=== PATIENT | female | born 1995 | race Caucasian/White ===

== ENCOUNTER 2016-11-07 16:49 | Emergency (ER) | payer OTHER ==
[~2016-11-07] VITALS: Ht 177.8 cm; Wt 97.7 kg
[2016-11-07] MEDS ORDERED: SOD CHLORIDE 0.9% 1,000 ML IV STA (16:54)
--- NOTE | 2016-11-07 16:58 | ERD ---
ER Documentation Chief Complaint Date/Time DATE: 11/07/16 TIME: 16:56 Chief Complaint HPI This is a 21-year-old female with a known history of bipolar, borderline personality disorder and PTSD who presents to the emergency department brought in by EMS after her roommate stated she had consumed a significant amount of alcohol which was vodka and took 4 tablets of clonazepam 1 mg just prior to arrival. The patient indicated she took this and she wanted to get high and had no suicidal thoughts or homicidal thoughts. The patient moved from [place] 6 days prior to arrival and states she just wanted to alliance party. She denies any auditory tactile or visual hallucinations. EMS stated there were no signs of trauma. The patient also has a bottle of gabapentin but she stated she did not take any of those prior to arrival. She denies a headache. She denies any nausea. She states she is not currently sexually active and denies any frequency urgency or dysuria. ROS All systems reviewed and are negative except as per history of present illness. Allergies Allergies: Coded Allergies: No Known Allergy (Unverified , 11/07/16) Physical Exam Vitals Vital Signs Date Time Temp Pulse Resp B/P Pulse Ox O2 Delivery O2 Flow Rate FiO2 11/07/16 20:41 88 20 123/70 96 Room Air 11/07/16 17:29 98.3 93 17 119/55 96 Physical Exam Constitutional:Well-developed. Patient disheveled. Smelled of alcohol. HEENT:Normocephalic. Atraumatic.Pupils were 3 mm equal round reactive to light. Moist mucous membranes.No tonsillar exudates. Neck: No nuchal rigidity. No lymphadenopathy. No posterior cervical spine tenderness or step-offs. Respiratory: Not using accessory muscles of respiration.Lungs were clear to auscultation bilaterally. No rhonchi. No rales. No wheezing. Cardiovascular: Regular rate regular rhythm.No murmurs. No rubs were appreciated.S1, S2 normal. Distal pulses are palpable 2+ bilaterally. GI: Abdomen was soft. Nontender. Non Distended. No pulsatile abdominal masses or bruits. No rebound. No guarding. Bowel sounds were present and normal. Muscle skeletal: Full range of motion of both the upper and lower extremities bilaterally.Normal muscle tone.No assymetrical calf tenderness or swelling. Skin: No petechia, no purpura. No lesions on the palms or the soles of the feet. No maculopapular rash. NEURO: Patient was alert, awake, orientated x3.No facial droop. Gait was ataxic. Patient smelled of alcohol with slurred speech speech. No focal neurological deficits. Result Diagram: 11/07/16 1740 11/07/16 1740 Results 24 hrs Laboratory Tests Test 11/07/16 17:40 White Blood Count 10.510^3/ul Red Blood Count 4.9410^6/ul Hemoglobin 14.8g/dl Hematocrit 45.4% Mean Corpuscular Volume 91.9fl Mean Corpuscular Hemoglobin 30.0pg Mean Corpuscular Hemoglobin Concent 32.6g/dl Red Cell Distribution Width 13.4% Platelet Count 36172^3/UL Mean Platelet Volume 9.3fl Neutrophils % 53.6% Lymphocytes % 38.8% Monocytes % 6.3% Eosinophils % 0.3% Basophils % 0.5% Nucleated Red Blood Cells % 0.0/100WBC Neutrophils # 5.610^3/ul Lymphocytes # 4.110^3/ul Monocytes # 0.710^3/ul Eosinophils # 0.010^3/ul Basophils # 0.110^3/ul Nucleated Red Blood Cells # 0.010^3/ul Prothrombin Time 13.7Sec Prothrombin Time Ratio 1.1 INR International Normalized Ratio 1.05 Activated Partial Thromboplast Time 26.8Sec Urine Color YELLOW Urine Clarity CLEAR Urine pH 5.0 Urine Specific [place] 1.016 Urine Ketones NEGATIVEmg/dL Urine Nitrite NEGATIVEmg/dL Urine Bilirubin NEGATIVEmg/dL Urine Urobilinogen NEGATIVEmg/dL Urine Leukocyte Esterase NEGATIVELeu/ul Urine Hemoglobin NEGATIVEmg/dL Urine Glucose NEGATIVEmg/dL Urine Total Protein NEGATIVEmg/dl Sodium Level 149mmol/L Potassium Level 4.1mmol/L Chloride Level 110mmol/L Carbon Dioxide Level 20mmol/L Anion Gap 23 Blood Urea Nitrogen 13mg/dl Creatinine 1.06mg/dl Glucose Level 88mg/dl Calcium Level 9.6mg/dl Total Bilirubin 0.7mg/dl Direct Bilirubin 0.00mg/dl Indirect Bilirubin 0.7mg/dl Aspartate Amino Transf (AST/SGOT) 25IU/L Alanine Aminotransferase (ALT/SGPT) 33IU/L Alkaline Phosphatase 93IU/L Total Protein 9.1g/dl Albumin 5.3g/dl Globulin 3.80g/dl Albumin/Globulin Ratio 1.39 Salicylates Level < 1.0mg/dl Urine Opiates Screen Negative Acetaminophen Level < 10.0ug/ml Urine Barbiturates Negative Urine Amphetamines Screen Negative Urine Benzodiazepines Screen Negative Urine Cocaine Screen Positive Urine Cannabinoids Positive Ethyl Alcohol Level 193.0mg/dl Current Medications Medications (Trade) Dose Ordered Sig/Von Route PRN Reason Start Time Stop Time Status Last Admin Dose Admin Sodium Chloride (NS) 1,000 ml @ 1,000 mls/hr Q1H STAT IV 11/07/16 16:54 11/07/16 17:53 DC 11/07/16 17:55 Procedures/MDM This patient presented to the emergency department with acute psychosis and my differential diagnosis included but was not limited to ruling out life threatening causes of acute psychosis such as Wernickes encephalopathy, hypoxia , hypoglycemia, hypertensive encephalopathy, intracerebral hemorrhage, meningitis, poisoning. After my evaluation and workup on the patient I was able to exclude medical and reversible causes of the patients psychosis. It was my clinical impression the patients symptoms were an exacerbation of the ethanol mixed with clonazepam versus psychosis from her psychiatric disorder; therefore, the patient was medically cleared by myself at this time for psychiatric evaluation. Telemetry psychiatrist evaluated the patient and indicated they would like to speak to the cousin. When the cousin Denise arrived she provided much further history. The patient herself was now more sober and states she had no suicidal thoughts or ideations and wanted to go home. However I spoke in length with a cousin who indicated the patient has had multiple suicide attempts. She had 12 different hospital evaluations in [place] but has never been hospitalized in [place]. I was able to review various emails between the cousin and the mother as well as the patient, with the patient had stated recently she wanted to kill herself and no longer wanted to live. The cousin indicated that she goes home and will take multiple medications with alcohol and will slit her wrists stating she wants to hurt herself and . Therefore at this time I have reordered a telemetry psychiatrist to evaluate the patient and speak with the cousin. It was suggested that the patient be placed on a 5150 as the patient is a suicide risk. 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
[2016-11-07 17:29] VITALS: Ht 177.8 cm; Wt 97.7 kg
[2016-11-07 17:55] LABS: ADD SCAN DIFF NO
[2016-11-07 17:57] LABS: BASOPHIL # 0.1 10^3/ul (0.0-0.1); BASOPHILS % 0.5 % (0.0-2.0); EOSINOPHILS % 0.3 % (0.0-7.0); HEMATOCRIT 45.4 % (37.0-47.0); HEMOGLOBIN 14.8 g/dl (12.0-16.0); LYMPHOCYTES # 4.1 10^3/ul (0.8-2.9); LYMPHOCYTES % 38.8 % (15.0-51.0); MEAN CORPUSCULAR HGB CONC 32.6 g/dl (32.0-37.0); MEAN CORPUSCULAR VOLUME 91.9 fl (82.0-101.0); MEAN PLATELET VOLUME 9.3 fl (7.4-10.4); MONOCYTE # 0.7 10^3/ul (0.3-0.9); MONOCYTES % 6.3 % (0.0-11.0); NEUTROPHIL # 5.6 10^3/ul (1.6-7.5); NEUTROPHILS % 53.6 % (39.0-77.0); PLATELET COUNT 429 10^3/UL (140-415); RED BLOOD COUNT 4.94 10^6/ul (4.20-5.40); RED CELL DISTRIBUTION WIDTH 13.4 % (11.5-14.5); WHITE BLOOD COUNT 10.5 10^3/ul (4.8-10.8)
[2016-11-07 18:01] LABS: ADD UMIC NO; UR ASCORBIC ACID NEGATIVE (NEGATIVE); UR BILIRUBIN (Dip) NEGATIVE (NEGATIVE); UR BLOOD (Dip) NEGATIVE (NEGATIVE); UR CLARITY CLEAR (CLEAR); UR COLOR YELLOW (YELLOW); UR GLUCOSE (Dip) NEGATIVE (NEGATIVE); UR KETONES (Dip) NEGATIVE (NEGATIVE); UR LEUKOCYTE ESTERASE (Dip) NEGATIVE Leu/ul (NEGATIVE); UR NITRITE (Dip) NEGATIVE (NEGATIVE); UR SPECIFIC GRAVITY (Dip) 1.016 (1.003-1.030); UR TOTAL PROTEIN (Dip) NEGATIVE (NEGATIVE); UR UROBILINOGEN (Dip) NEGATIVE (NEGATIVE)
[2016-11-07 18:12] LABS: INR 1.05; PROTIME 13.7 Sec (12.2-14.2); PT RATIO 1.1
[2016-11-07 18:13] LABS: PARTIAL THROMBOPLASTIN TIME 26.8 Sec (25.0-35.0)
[2016-11-07 18:14] LABS: ALANINE AMINOTRANSFERASE 33 IU/L (13-69); ALBUMIN 5.3 g/dl (3.3-4.9); ALBUMIN/GLOBULIN RATIO 1.39; ALKALINE PHOSPHATASE 93 IU/L (42-121); ANION GAP 23 (8-16); ASPARTATE AMINO TRANSFERASE 25 IU/L (15-46); BILIRUBIN,INDIRECT 0.7 mg/dl (0-1.1); BILIRUBIN,TOTAL 0.7 mg/dl (0.2-1.3); BLOOD UREA NITROGEN 13 mg/dl (7-20); CALCIUM 9.6 mg/dl (8.4-10.2); CARBON DIOXIDE 20 mmol/L (21-31); CHLORIDE 110 mmol/L (97-110); CREATININE 1.06 mg/dl (0.44-1.00); GLUCOSE 88 mg/dl (70-220); POTASSIUM 4.1 mmol/L (3.5-5.1); SODIUM 149 mmol/L (135-144); TOTAL PROTEIN 9.1 g/dl (6.1-8.1)
[2016-11-07 18:15] LABS: ACETAMINOPHEN < 10.0 ug/ml (10.0-30.0); SALICYLATE < 1.0 mg/dl (5.0-30.0)
[2016-11-07 18:25] LABS: BENZODIAZEPINES Negative (NEGATIVE); CANNABINOIDS Positive (NEGATIVE)
[2016-11-07 18:29] LABS: BARBITURATES Negative (NEGATIVE); COCAINE Positive (NEGATIVE); OPIATES Negative (NEGATIVE)
--- NOTE | 2016-11-07 19:11 | PSY ---
Date/Time of Note Date/Time of Note DATE: 11/07/16 TIME: 22:03 Psychiatric Subjective Eval Consent Pt consented to telemedicine: Yes Subjective Evaluation Patient location: emergency Chief Complaint: PT TOOK KLONOPIN AND GABAPENTIN WITH VODKA. HX OF PSYCH. History of present illness HPI: The patient is a 21 yo female with a ho substance abuse, bipolar 2 per pt. The hx if vague and not clear, the patient was very vague and evasive. By report , the pt and her "cousin" were in an argument in which the cousin was criticizing the patient for her drug use. The pt was intoxicated. Apparently something was said and the pt wrote a letter or a "suicide note" per the pt's cousin (as reported by ER staff). At some point somebody called 911 and the pt was taken to the ER. the letter was unavailable to this MD and the cousin was not available. The pt reports she was simply intoxicated. She was evasive about what was said but denies si was mentioned and repots the letter was "poetry" not a suicide letter. She denies trying to kill self though the nursing report is that she took clonazepam and gabapentin with vodka. Denies psychosis. Admits to cocaine and THC use. When [place] initial asked pt homar she is in ED she said only because she was drunk. Past Psych Hx: one admit 5 years ago, is in outpatient treatment PMHx: denies all: denies Soc Hx: just moved to [place] 8 days ago from [place], living with distant cousin MSE: intoxicated, slurred speech, unsteady on feet, somewhat irritable, perseverates on wanting to go home, mostly organized, no delusions denies avh denies si/hi, poor insight, poor reliability Imp: 21 yo female with BAD II, polysubstance, possible Si and possible suicide attempt in context of intoxication, drug use (cocaine, thc, etoh). Given pt's hx as well as poor insight, poor reliability, intoxication, substance use, report of letter, report of SI, possibly suicide attempt, pt appears to be at acute risk of harm to herself. However, given that she is denying everything, this MD recommends paralle hx from pt's cousin adn also review of letter to determine whether there was any Si or attempt at all or if this wasa mistake, as indicated by pt. -etoh w/d precautions -daily thiamine 100mg po, folate 1mg po, mvi -for moderate agitation zyprexa 5mg po prn -for severe agitation haldol 5mg IM, ativan 2mg IM, cogentin 1mg IM prn Allergies: Coded Allergies: No Known Allergy (Unverified , 11/07/16) Psychiatric Objective Eval Mental Status Examination: Laboratory Results Laboratory Tests Test 11/07/16 17:40 White Blood Count 10.510^3/ul Red Blood Count 4.9410^6/ul Hemoglobin 14.8g/dl Hematocrit 45.4% Mean Corpuscular Volume 91.9fl Mean Corpuscular Hemoglobin 30.0pg Mean Corpuscular Hemoglobin Concent 32.6g/dl Red Cell Distribution Width 13.4% Platelet Count 83973^3/UL Mean Platelet Volume 9.3fl Neutrophils % 53.6% Lymphocytes % 38.8% Monocytes % 6.3% Eosinophils % 0.3% Basophils % 0.5% Nucleated Red Blood Cells % 0.0/100WBC Neutrophils # 5.610^3/ul Lymphocytes # 4.110^3/ul Monocytes # 0.710^3/ul Eosinophils # 0.010^3/ul Basophils # 0.110^3/ul Nucleated Red Blood Cells # 0.010^3/ul Prothrombin Time 13.7Sec Prothrombin Time Ratio 1.1 INR International Normalized Ratio 1.05 Activated Partial Thromboplast Time 26.8Sec Urine Color YELLOW Urine Clarity CLEAR Urine pH 5.0 Urine Specific [place] 1.016 Urine Ketones NEGATIVEmg/dL Urine Nitrite NEGATIVEmg/dL Urine Bilirubin NEGATIVEmg/dL Urine Urobilinogen NEGATIVEmg/dL Urine Leukocyte Esterase NEGATIVELeu/ul Urine Hemoglobin NEGATIVEmg/dL Urine Glucose NEGATIVEmg/dL Urine Total Protein NEGATIVEmg/dl Sodium Level 149mmol/L Potassium Level 4.1mmol/L Chloride Level 110mmol/L Carbon Dioxide Level 20mmol/L Anion Gap 23 Blood Urea Nitrogen 13mg/dl Creatinine 1.06mg/dl Glucose Level 88mg/dl Calcium Level 9.6mg/dl Total Bilirubin 0.7mg/dl Direct Bilirubin 0.00mg/dl Indirect Bilirubin 0.7mg/dl Aspartate Amino Transf (AST/SGOT) 25IU/L Alanine Aminotransferase (ALT/SGPT) 33IU/L Alkaline Phosphatase 93IU/L Total Protein 9.1g/dl Albumin 5.3g/dl Globulin 3.80g/dl Albumin/Globulin Ratio 1.39 Salicylates Level < 1.0mg/dl Urine Opiates Screen Negative Acetaminophen Level < 10.0ug/ml Urine Barbiturates Negative Urine Amphetamines Screen Negative Urine Benzodiazepines Screen Negative Urine Cocaine Screen Positive Urine Cannabinoids Positive Ethyl Alcohol Level 193.0mg/dl DEWAYNE CORREA Nov 07, 2016 19:11
[2016-11-08] MEDS ORDERED: LORAZEPAM 2 MG INJ ONE (01:11)
[2016-11-08] MEDS ORDERED: HALOPERIDOL 5 MG INJ ONE (01:11)
[2016-11-08] MEDS ORDERED: DIPHENHYDRAMINE 50 MG INJ ONE (01:11)
--- NOTE | 2016-11-08 01:26 | PSY ---
Date/Time of Note Date/Time of Note DATE: 11/07/16 TIME: 23:49 Psychiatric Subjective Eval Subjective Evaluation Patient location: emergency Chief Complaint: PT TOOK KLONOPIN AND GABAPENTIN WITH VODKA. HX OF PSYCH. History of present illness patient is a 21 yo female with PPH Of bipolar do , anxiety and heroine meth and crack cocaine , alcohol abuse , she has been living with her cousin for the past week , her cousin states that she has been cutting herself and drinking alcohol everyday, vodka, she has been feeling suicidal , she has been texting her mother that she is going to kill herself, her cousin states that patient came to her house because she was supposed to help her becoming sober, since she went through it herself , but when she arrived at her cousin house instead of going to groups and getting sober she started to want to hang out , has been looking for people to get high with , her urine is positive for cocaine and her alcohol level was 190 upon arrival in the ER. patient states that she is in the hospital because she passed out after drinking , she just moved in to [place] with her cousin to start over, but would not tell me anything about her drug use, denies any hx of drug use, denies having used any drug recently, states " i came to [place] because i wanted to start over, [place], " then when i told her that i would have to have her admitted she said that she could talk to me but that she has apt with a psychiatrist tomorrow to talk to and that her cousin had a " whole plan for drug tx that she was going to follow " denies any symptoms, denies any si or hi. 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 Status: Acute (3) Suicidal risk Status: Acute Allergies: Coded Allergies: No Known Allergy (Unverified , 11/07/16) Substance Abuse Substance abuse history: Yes (methamphetamine opiate cocaine ) Prior substance abuse treatmen: Yes Social History Marital status: single Level of education: hs DPA/Conservatorship: No Occupation/Penitentiary: none Psychiatric Objective Eval Review of Systems: Review of Systems: Not Applicable Physical Examination: Physical Examination: Applicable Appetite: Decreased Energy: Decreased Interest: Decreased Mental Status Examination: Appearance: Disheveled Eye Contact: Good Psychomotor Activity: Normal Behavior: Cooperative Speech: Clear AFFECT: Depressed Mood: Depressed Though Process: Linear Thought Content: Normal Suicidal: Yes Homicidal: No Orientation: x2 Cognition: Alert Insight: Impared Judgement: Impared Attention Span: Intact Laboratory Results Laboratory Tests Test 11/07/16 17:40 White Blood Count 10.510^3/ul Red Blood Count 4.9410^6/ul Hemoglobin 14.8g/dl Hematocrit 45.4% Mean Corpuscular Volume 91.9fl Mean Corpuscular Hemoglobin 30.0pg Mean Corpuscular Hemoglobin Concent 32.6g/dl Red Cell Distribution Width 13.4% Platelet Count 87638^3/UL Mean Platelet Volume 9.3fl Neutrophils % 53.6% Lymphocytes % 38.8% Monocytes % 6.3% Eosinophils % 0.3% Basophils % 0.5% Nucleated Red Blood Cells % 0.0/100WBC Neutrophils # 5.610^3/ul Lymphocytes # 4.110^3/ul Monocytes # 0.710^3/ul Eosinophils # 0.010^3/ul Basophils # 0.110^3/ul Nucleated Red Blood Cells # 0.010^3/ul Prothrombin Time 13.7Sec Prothrombin Time Ratio 1.1 INR International Normalized Ratio 1.05 Activated Partial Thromboplast Time 26.8Sec Urine Color YELLOW Urine Clarity CLEAR Urine pH 5.0 Urine Specific [place] 1.016 Urine Ketones NEGATIVEmg/dL Urine Nitrite NEGATIVEmg/dL Urine Bilirubin NEGATIVEmg/dL Urine Urobilinogen NEGATIVEmg/dL Urine Leukocyte Esterase NEGATIVELeu/ul Urine Hemoglobin NEGATIVEmg/dL Urine Glucose NEGATIVEmg/dL Urine Total Protein NEGATIVEmg/dl Sodium Level 149mmol/L Potassium Level 4.1mmol/L Chloride Level 110mmol/L Carbon Dioxide Level 20mmol/L Anion Gap 23 Blood Urea Nitrogen 13mg/dl Creatinine 1.06mg/dl Glucose Level 88mg/dl Calcium Level 9.6mg/dl Total Bilirubin 0.7mg/dl Direct Bilirubin 0.00mg/dl Indirect Bilirubin 0.7mg/dl Aspartate Amino Transf (AST/SGOT) 25IU/L Alanine Aminotransferase (ALT/SGPT) 33IU/L Alkaline Phosphatase 93IU/L Total Protein 9.1g/dl Albumin 5.3g/dl Globulin 3.80g/dl Albumin/Globulin Ratio 1.39 Salicylates Level < 1.0mg/dl Urine Opiates Screen Negative Acetaminophen Level < 10.0ug/ml Urine Barbiturates Negative Urine Amphetamines Screen Negative Urine Benzodiazepines Screen Negative Urine Cocaine Screen Positive Urine Cannabinoids Positive Ethyl Alcohol Level 193.0mg/dl Assessment and Plan Assessment/Diagnosis [place] I: major depressive 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 Previous suicide attempt and severe self-destructive behavior. Intense feelings of hopelessness and/or lack of future orientation. Non-Compliance with Outpatient Treatment.~ Substance ABUSE in conjunction with another psychiatric disorder.~ Significant recent DETERIORATION in function, behavior and thought processes 5150 Recommendation: HOLLY Bassett MD Nov 08, 2016 01:02
[2016-11-08] MEDS ORDERED: DIPHENHYDRAMINE 50 MG INJ IM ONE (02:00)
[2016-11-08] MEDS ORDERED: LORAZEPAM 2 MG INJ IM ONE (02:00)
[2016-11-08] MEDS ORDERED: HALOPERIDOL 5 MG INJ IM ONE (02:00)
[2016-11-08] MEDS ORDERED: TOPI-44 PO (12:02)
[2016-11-08] MEDS ORDERED: GABA-528 PO (12:03)
[2016-11-08] MEDS ORDERED: CLON1TAB3 PO (12:04)
[2016-11-08] MEDS ORDERED: TRAZ50TA18 PO (12:04)
[2016-11-08] MEDS ORDERED: BACL20TA PO (12:04)
[2016-11-08 12:45] VITALS: BP 115/71; PULSE 60; RESP 16; TEMP 98.1
== END 2016-11-08 12:45 ==
LOC: E/R 16:49
DX: F10.959 Alcohol use, unspecified with alcohol-induced psychotic disorder, unspecified (principal); R45.851 Suicidal ideations; R40.2142 Coma scale, eyes open, spontaneous, at arrival to emergency department; R40.2252 Coma scale, best verbal response, oriented, at arrival to emergency department; R40.2362 Coma scale, best motor response, obeys commands, at arrival to emergency department
CPT/HCPCS: 80053; 80306; 80307; 81003; 85025; 85610; 85730; 93005; 96372; 99285; J1200; J1630; J2060; J7030

== ENCOUNTER 2016-11-11 06:26 | Emergency (ER) | payer OTHER ==
[~2016-11-11] VITALS: Wt 79.5 kg
[~2016-11-11 06:26] MED LIST: BACL20TA PO; CLON1TAB3 PO; GABA-528 PO; TOPI-44 PO; TRAZ50TA18 PO
--- NOTE | 2016-11-11 06:46 | ERD ---
ER Documentation Chief Complaint Date/Time DATE: 11/11/16 Chief Complaint Headache HPI The patient is a 21-year-old female with a history of bipolar disorder, borderline personality disorder, PTSD, depression, panic disorder and seizures who presents to the Emergency Department with complaint of a headache. The patient reports that her headache began at approximately 2:00 am this morning. Her headache was lnbcyrc-[id number], constant, bitemporal, and is described as aching in nature. She denies any history of similar headache in the past. The patient rates her current pain as 9/10 in intensity at this time in the ED. She reports associated photophobia, nausea with three episodes of nonbilious, nonbloody emesis, hematuria and pain upon urination. Otherwise, denies fevers, sweats, chills, dizziness, lightheadedness, weakness, visual changes, diplopia, blurred vision, vision loss, neck pain, neck stiffness, change in mentation, abdominal pain, or flank pain. Denies recent travel. Denies recent URI or illness. Denies recent falls, injury or trauma to the head. Denies loss of consciousness, syncope, seizure-like activity. The patient notes that she has taken 7 tablets of Ibuprofen over the past 3 hours, with no significant relief. Denies black or bloody stools, hematemesis, or other signs of GI upset. Patient has a history of suicidal ideation with attempted harm to self, and was discharged from [facility] yesterday. She denies any current suicidal ideation , homicidal ideation, hallucinations or delusions. Patient notes that approximately one week ago she relapsed on Crystal Meth, though has not used any since. No other complaints at this time. ROS All systems reviewed and are negative except as per history of present illness. Medications Home Meds Active Scripts Nitrofurantoin Monohyd Macrocr* (Macrobid*) 100 Mg Capsr, 100 MG PO BID for 7 Days, CAP Prov:SCOTT NUNN PA-C 11/11/16 Reported Medications Clonazepam* (Clonazepam*) 1 Mg Tablet, 1 MG PO Q8H Y for ANXIETY, TAB 11/08/16 Trazodone Hcl* (Trazodone Hcl*) 50 Mg Tablet, 50 MG PO QHS, #30 TAB 11/08/16 Baclofen* (Baclofen*) 20 Mg Tablet, 20 MG PO TID, TAB 11/08/16 Gabapentin* (Gabapentin*) 800 Mg Tablet, 800 MG PO BID, #90 TAB 11/08/16 Topiramate* (Topiramate*) 25 Mg Tablet, 25 MG PO BID, TAB 11/08/16 Allergies Allergies: Coded Allergies: Penicillins (Verified Allergy, Mild, 11/11/16) PMhx/Soc History of Surgery: No Anesthesia Reaction: No Hx Neurological Disorder: No Hx Respiratory Disorders: No Hx Cardiac Disorders: No Hx Psychiatric Problems: No Hx Miscellaneous Medical Probl: No Hx Alcohol Use: Yes (pt appears/smells intoxicated) Hx Substance Use: Yes (weed) Hx Tobacco Use: Yes Physical Exam Vitals Vital Signs Date Time Temp Pulse Resp B/P Pulse Ox O2 Delivery O2 Flow Rate FiO2 11/11/16 08:51 97.3 95 18 128/71 99 Room Air 11/11/16 06:32 97.3 80 20 134/88 99 Physical Exam GENERAL: Well-developed, well-nourished, female, in no acute distress. Nontoxic. HEENT: Head is normocephalic, atraumatic. No scleral pallor or icterus. Pupils equal, round and reactive to light. Extraocular movements intact. Conjunctiva pink. Moist mucous membranes. NECK: Supple. No masses, no tenderness, no lymphadenopathy. Trachea midline. No nuchal rigidity. No meningismus. RESPIRATORY: Lungs are clear to auscultation bilaterally. Equal breath sounds. Normal expiratory effort. CARDIOVASCULAR: Regular rate and rhythm. S1 and S2 normal. No murmurs, rubs, or gallops. Distal pulses are palpable, 2+ bilaterally. Capillary refill is less than 2 seconds. GASTROINTESTINAL: Abdomen is soft, non-tender, and non-distended. Normal bowel sounds. FLANK: No CVA tenderness. BACK: No midline tenderness. EXTREMITIES: No clubbing, cyanosis, or edema. Normal skin perfusion. Moving all extremities. Muscle tone is normal. No focal swelling or erythema. NEUROLOGIC: The patient is alert, awake, and oriented x 3. No focal neurologic deficits. Cranial nerves II-XII intact. Gait is observed and normal. There is no ataxia. Motor normal in all extremities. Sensation grossly intact. Speech is normal. INTEGUMENT: Skin is intact. Warm and dry. No rashes, no petechiae, no purpura present. Normal turgor. PSYCHIATRIC: Normal mood and mentation. Result Diagram: 11/11/16 0710 11/11/16 0710 Results 24 hrs Laboratory Tests Test 11/11/16 07:10 White Blood Count 13.410^3/ul Red Blood Count 4.9610^6/ul Hemoglobin 15.1g/dl Hematocrit 46.0% Mean Corpuscular Volume 92.7fl Mean Corpuscular Hemoglobin 30.4pg Mean Corpuscular Hemoglobin Concent 32.8g/dl Red Cell Distribution Width 13.2% Platelet Count 78961^3/UL Mean Platelet Volume 9.6fl Neutrophils % 73.6% Lymphocytes % 21.3% Monocytes % 4.3% Eosinophils % 0.1% Basophils % 0.3% Nucleated Red Blood Cells % 0.0/100WBC Neutrophils # 9.910^3/ul Lymphocytes # 2.910^3/ul Monocytes # 0.610^3/ul Eosinophils # 0.010^3/ul Basophils # 0.010^3/ul Nucleated Red Blood Cells # 0.010^3/ul Urine Color YELLOW Urine Clarity CLOUDY Urine pH 7.0 Urine Specific [place] 1.012 Urine Ketones NEGATIVEmg/dL Urine Nitrite NEGATIVEmg/dL Urine Bilirubin NEGATIVEmg/dL Urine Urobilinogen NEGATIVEmg/dL Urine Leukocyte Esterase 2+Romeo/ul Urine Microscopic RBC 3/HPF Urine Microscopic WBC 6/HPF Urine Squamous Epithelial Cells FEW/HPF Urine Amorphous Crystals FEW/HPF Urine Bacteria FEW/HPF Urine Mucus FEW/HPF Urine Hemoglobin NEGATIVEmg/dL Urine Glucose NEGATIVEmg/dL Urine Total Protein NEGATIVEmg/dl Sodium Level 149mmol/L Potassium Level 3.7mmol/L Chloride Level 103mmol/L Carbon Dioxide Level 26mmol/L Anion Gap 24 Blood Urea Nitrogen 11mg/dl Creatinine 0.93mg/dl Glucose Level 102mg/dl Calcium Level 10.7mg/dl Total Bilirubin 0.8mg/dl Direct Bilirubin 0.00mg/dl Indirect Bilirubin 0.8mg/dl Aspartate Amino Transf (AST/SGOT) 20IU/L Alanine Aminotransferase (ALT/SGPT) 25IU/L Alkaline Phosphatase 97IU/L Total Protein 9.8g/dl Albumin 5.1g/dl Globulin 4.70g/dl Albumin/Globulin Ratio 1.08 Serum HCG, Qualitative NEGATIVE Salicylates Level < 1.0mg/dl Urine Opiates Screen Negative Acetaminophen Level < 10.0ug/ml Urine Barbiturates Negative Urine Amphetamines Screen Positive Urine Benzodiazepines Screen Negative Urine Cocaine Screen Negative Urine Cannabinoids Negative Ethyl Alcohol Level < 10.0mg/dl Current Medications Medications (Trade) Dose Ordered Sig/Von Route PRN Reason Start Time Stop Time Status Last Admin Dose Admin Sodium Chloride (NS) 1,000 ml @ 1,000 mls/hr Q1H STAT IV 11/11/16 06:57 11/11/16 07:56 DC 11/11/16 07:19 Metoclopramide HCl (Reglan) 10 mg ONCE STAT IV 11/11/16 06:57 11/11/16 07:02 DC 11/11/16 07:15 Diphenhydramine HCl (Benadryl) 25 mg ONCE STAT IV 11/11/16 06:57 11/11/16 07:02 DC 11/11/16 07:15 Morphine Sulfate (morphine) 4 mg ONCE STAT IV 11/11/16 07:53 11/11/16 07:55 DC 11/11/16 07:57 Nitrofurantoin Macrocrystals (Macrobid) 100 mg ONCE ONCE PO 11/11/16 08:30 11/11/16 08:31 DC 11/11/16 08:18 Procedures/MDM DIAGNOSTIC TESTS AND INTERPRETATION: PROCEDURE: CT Brain without contrast. CLINICAL INDICATION: Headache TECHNIQUE: CT scan of the brain was performed on a multidetector high- resolution CT scan. Axial imaging was obtained of the brain without contrast administration. Coronal and sagittal reformatted images were obtained from the axial source images. Standard CT scan of the head without contrast protocols were performed. The total exam CTDI equals 45.01 mGy and the total exam DLP equals 720.23 mGy- cm. One or more of the following dose reduction techniques were used: - Automated exposure control. - Adjustment of the mA and/or kV according to patient size. Use of iterative reconstruction technique. COMPARISON: None FINDINGS: The ventricular system and peripheral CSF spaces are unremarkable. Negative for intracranial masses hemorrhages or midline shift. The salcedo-white matter junction is unremarkable. The bones and calvarium are intact. The paranasal sinuses visualized and mastoids are unremarkable. IMPRESSION:Negative CT scan of the head without contrast. Physician Alfie Date Time Electronically viewed and signed by Physician Alfie on 11/11/2016 07:43 EMERGENCY DEPARTMENT COURSE: IV access established by nursing staff. Fluids, 10 mg Reglan IV, 25 mg Benadryl IV, 4 mg Morphine IV administered for symptomatic relief. Laboratory testing and CT imaging ordered. Will continue to observe and monitor patient for improvement. 11/11/2016 7:02 AM The patient's case was discussed with Yessenia from the Poison Control hotline, who states that likely patient will not develop any adverse symptoms with 7 tablets of Ibuprofen. However, patient must be evaluated to rule out metabolic acidosis, acute renal failure, etc. Recommends obtaining, CBC , CMP, tylenol level, salicylate level, blood alcohol level, urine drug screen, test. Recommends administration of fluids. Urine : Negative. The patient's case was reviewed and discussed with ED attending/supervising physician, Dr. Fatima, who agrees with plan of care including labs, treatment and advanced imaging as appropriate. Dr. Fatima recommends that the patient be discharged home with diagnosis of methamphetamine abuse and headache to follow up with her primary medical provider as an outpatient. A discussion was held by me with the patient regarding smoking cessation. The risks of continued smoking, including hypertension, cardiac, cerebrovascular, and other end organ injury were discussed. Furthermore, the risk of emphysema, cancer, chronic bronchitis, and other pulmonary complications were emphasized. The risks and benefits of medical therapy including nicotine replacement therapy were discussed. The patient is strongly encouraged to pursue a smoking cessation program. Time spent in counseling 5 minutes. MEDICAL DECISION MAKING: This is a 21-year-old female presenting to the emergency department with a bitemporal headache and dysuria. The patient had no significant abnormalities on physical examination, exhibited no altered mental status, neurologic deficits or meningeal signs. The differential diagnosis includes, but is not limited to, subarachnoid hemorrhage, intracerebral bleeding , cerebral aneurysm, meningitis, encephalitis, brain abscess, embolic stroke, brain tumor, temporal arteritis, sinusitis, migraine headache, tension headache , acute glaucoma, cluster headache, pseudotumor cerebri, encephalopathy, urinary tract infection, pyelonephritis. No acute abnormalities were noted on head CT ordered. Her condition improved during her stay. After rest and administration of Morphine, Benadryl, Reglan and fluids the patient reports no new complaints and significantly decreased pain. Upon my review and interpretation of the patient's presentation and overall ER course, I believe the patient's symptoms are most consistent with a headache, urinary tract infection and methamphetamine abuse. Suspect benign etiology of headache. Doubt meningitis, patients neck is supple, no fevers, no meningismus. Doubt TBI, no preceding trauma. Doubt subarachnoid hemorrhage, headache was not oycofy-ol-hljoo, neck is supple. Doubt temporal arteritis, no jaw claudication, no visual changes. Doubt acute glaucoma, no consistent visual or ocular symptoms. Doubt mass or CVA based on neurologic examination. No significant intracranial abnormalities noted on head CT. Urinalysis did reveal urine leukocyte esterase with WBCs, concerning for urinary tract infection. Given recent urinary symptoms, diagnosis seems appropriate. Macrobid 100 mg PO x 1 administered in the ED. At this time, the patient is in stable condition and therefore can be discharged home with a prescription for Macrobid and given strict return precautions for signs of deteriorating or worsening condition. She is advised to follow up with her primary care provider for reevaluation and further management within 2-3 days, or to return to the ER sooner for any worsening symptoms. I shared my medical decision making and plan with the patient at length and in great detail, and the patient verbally understands and agrees with the plan for further observation and care as an outpatient. At the time of discharge, all questions were answered. Departure Diagnosis: Primary Impression: Headache Headache type: unspecified Headache chronicity pattern: acute headache Intractability: not intractable Qualified Code: R51 - Acute nonintractable headache, unspecified headache type Additional Impressions: Acute cystitis with hematuria Methamphetamine abuse Condition: Stable Patient Instructions: Headache, Unspecified, Self-Care for Headaches, Understanding Headache Pain, Understanding Urinary Tract Infections (UTIs), Urinary Tract Infections in Women Additional Instructions: Call your primary care doctor TOMORROW for an appointment during the next 2-3 days.See the doctor sooner or return here if your condition worsens before your appointment time. SCOTT NUNN PA-C Nov 11, 2016 06:46
[2016-11-11] MEDS ORDERED: DIPHENHYDRAMINE 50 MG INJ IV STA (06:57)
[2016-11-11] MEDS ORDERED: SOD CHLORIDE 0.9% 1,000 ML IV STA (06:57)
[2016-11-11] MEDS ORDERED: METOCLOPRAMIDE 10 MG INJ IV STA (06:57)
[2016-11-11 07:23] LABS: ADD SCAN DIFF NO
[2016-11-11 07:27] LABS: BASOPHILS % 0.3 % (0.0-2.0); EOSINOPHILS % 0.1 % (0.0-7.0); HEMOGLOBIN 15.1 g/dl (12.0-16.0); LYMPHOCYTES # 2.9 10^3/ul (0.8-2.9); LYMPHOCYTES % 21.3 % (15.0-51.0); MEAN CORPUSCULAR HEMOGLOBIN 30.4 pg (29.0-33.0); MEAN CORPUSCULAR HGB CONC 32.8 g/dl (32.0-37.0); MEAN CORPUSCULAR VOLUME 92.7 fl (82.0-101.0); MEAN PLATELET VOLUME 9.6 fl (7.4-10.4); MONOCYTE # 0.6 10^3/ul (0.3-0.9); MONOCYTES % 4.3 % (0.0-11.0); NEUTROPHIL # 9.9 10^3/ul (1.6-7.5); NEUTROPHILS % 73.6 % (39.0-77.0); PLATELET COUNT 389 10^3/UL (140-415); RED BLOOD COUNT 4.96 10^6/ul (4.20-5.40); RED CELL DISTRIBUTION WIDTH 13.2 % (11.5-14.5); WHITE BLOOD COUNT 13.4 10^3/ul (4.8-10.8)
--- NOTE | 2016-11-11 07:44 | RADRPT ---
PROCEDURE: CT Brain without contrast. CLINICAL INDICATION: Headache TECHNIQUE: CT scan of the brain was performed on a multidetector high-resolution CT scan. Axial im aging was obtained of the brain without contrast administration. Coronal and sagittal reformatted i mages were obtained from the axial source images. Standard CT scan of the head without contrast prot ocols were performed. The total exam CTDI equals 45.01 mGy and the total exam DLP equals 720.23 mGy-cm. One or more of the following dose reduction techniques were used: - Automated exposure control. - Adjustment of the mA and/or kV according to patient size. Use of iterative reconstruction technique. COMPARISON: None FINDINGS: The ventricular system and peripheral CSF spaces are unremarkable. Negative for intracr anial masses hemorrhages or midline shift. The salcedo-white matter junction is unremarkable. The bon es and calvarium are intact. The paranasal sinuses visualized and mastoids are unremarkable. IMPRESSION: Negative CT scan of the head without contrast. RPTAT:AAJJ Physician Alfie Date Time Electronically viewed and signed by Physician Alfie on 11/11/2016 07:43 LUPIS/
[2016-11-11 07:45] LABS: ALANINE AMINOTRANSFERASE 25 IU/L (13-69); ALBUMIN 5.1 g/dl (3.3-4.9); ALBUMIN/GLOBULIN RATIO 1.08; ALKALINE PHOSPHATASE 97 IU/L (42-121); ANION GAP 24 (8-16); ASPARTATE AMINO TRANSFERASE 20 IU/L (15-46); BILIRUBIN,INDIRECT 0.8 mg/dl (0-1.1); BILIRUBIN,TOTAL 0.8 mg/dl (0.2-1.3); BLOOD UREA NITROGEN 11 mg/dl (7-20); CALCIUM 10.7 mg/dl (8.4-10.2); CARBON DIOXIDE 26 mmol/L (21-31); CHLORIDE 103 mmol/L (97-110); CREATININE 0.93 mg/dl (0.44-1.00); GLUCOSE 102 mg/dl (70-220); POTASSIUM 3.7 mmol/L (3.5-5.1); SODIUM 149 mmol/L (135-144); TOTAL PROTEIN 9.8 g/dl (6.1-8.1)
[2016-11-11 07:52] LABS: ADD UMIC YES; UR AMORPHOUS CRYSTAL FEW /HPF (NONE SEEN); UR ASCORBIC ACID NEGATIVE (NEGATIVE); UR BACTERIA FEW /HPF (NONE SEEN); UR BILIRUBIN (Dip) NEGATIVE (NEGATIVE); UR BLOOD (Dip) NEGATIVE (NEGATIVE); UR CLARITY CLOUDY (CLEAR); UR COLOR YELLOW (YELLOW); UR GLUCOSE (Dip) NEGATIVE (NEGATIVE); UR KETONES (Dip) NEGATIVE (NEGATIVE); UR LEUKOCYTE ESTERASE (Dip) 2+ Leu/ul (NEGATIVE); UR MUCUS FEW /HPF (NONE SEEN); UR NITRITE (Dip) NEGATIVE (NEGATIVE); UR RBC 3 /HPF (0-5); UR SPECIFIC GRAVITY (Dip) 1.012 (1.003-1.030); UR SQUAMOUS EPITHELIAL CELL FEW /HPF (FEW); UR TOTAL PROTEIN (Dip) NEGATIVE (NEGATIVE); UR UROBILINOGEN (Dip) NEGATIVE (NEGATIVE)
[2016-11-11] MEDS ORDERED: morphine 4 MG/ML VIAL IV STA (07:53)
[2016-11-11 08:06] LABS: BENZODIAZEPINES Negative (NEGATIVE); CANNABINOIDS Negative (NEGATIVE)
[2016-11-11 08:20] LABS: BARBITURATES Negative (NEGATIVE); COCAINE Negative (NEGATIVE); OPIATES Negative (NEGATIVE)
[2016-11-11 08:24] LABS: ACETAMINOPHEN < 10.0 ug/ml (10.0-30.0); ETHANOL < 10.0 mg/dl; SALICYLATE < 1.0 mg/dl (5.0-30.0)
[2016-11-11] MEDS ORDERED: NITROFURANTOIN (SR) 100 MG CAP PO ONE (08:30)
[2016-11-11] MEDS ORDERED: NITR-58 PO (08:38)
[2016-11-11 08:51] VITALS: BP 128/71; PULSE 95; RESP 18; TEMP 97.3
== END 2016-11-11 08:51 | disposition home or self-care (01) ==
LOC: FTE 06:26
DX: R51 Headache (principal); N30.01 Acute cystitis with hematuria; F15.20 Other stimulant dependence, uncomplicated
CPT/HCPCS: 36415; 70450; 80053; 80306; 80307; 81001; 84703; 85025; 87086; 96374; 96375; 99285; J1200; J2270; J2765; J7030

== ENCOUNTER 2017-11-14 13:47 | Emergency (ER) | END 2017-11-14 14:29 | disposition left against medical advice (07) ==